=== PATIENT | female | born 1940 | race Caucasian/White ===

== ENCOUNTER 2017-08-27 10:07 | Outpatient (CLI) | payer MEDICARE ==
--- NOTE | 2017-08-27 14:23 | CT ---
CT CHEST WITH IV CONTRAST CT ABDOMEN AND PELVIS WITH IV AND ORAL CONTRAST: History: Chronic lymphocytic leukemia with chemotherapy and radiation. FINDINGS: No comparison. Lungs are somewhat hyperinflated with scattered calcified granulomata and interstitia l scarring. At the posterior aspect of the right upper lobe, just adjacent to the major pleural fiss ure is an oval well-circumscribed nodule that is 1.2 x 0.5 x 0.4 cm greatest diameters. Tiny nodules are present at the subpleural location of the superior segment left lower lobe. No lobar consolidat ion is apparent. Calcifications are present within the arterial structures. No enlarged mediastinal lymph nodes are evident. A 0.2 cm calculus is present within a nondilated stefanie of the superior pole of the right kidney. At the inferior pole of the right kidney is an oval 6.8 cm cyst. Smaller cysts are present within the r ight kidney and liver. No enlarged lymph nodes are scattered about the mesentery and retroperitoneum . Urinary bladder is unremarkable. The uterus and appendix are surgically absent. There are degenera tive changes of the lumbar spine. IMPRESSION: 1. Small parenchymal lung nodules, measuring up to 1.2 cm greatest diameter in the right upper lobe. Please consider short term CT follow up to evaluate for stability. 2. Atherosclerosis. 3. No evidence of adenopathy. POS: [facility]
[2017-08-27] MEDS ORDERED: Iopamidol 370 76% 100 ML VIAL ONE (16:38)
== END 2017-08-27 10:08 | disposition home or self-care (01) ==
LOC: CT 10:07
PROVIDERS: ATTEND Internal Medicine Hematology & Oncology
DX: C91.10 Chronic lymphocytic leukemia of B-cell type not having achieved remission (principal); R91.1 Solitary pulmonary nodule; I70.90 Unspecified atherosclerosis
CPT/HCPCS: 71260; 74177

== ENCOUNTER 2018-01-07 08:18 | Outpatient (CLI) | payer MEDICARE ==
--- NOTE | 2018-01-07 11:32 | CT ---
CHEST CT WITH CONTRAST: HISTORY: Chronic lymphocytic leukemia. COMPARISON: 08/27/17. TECHNIQUE: Chest CT is performed with contrast. Coronal reformatted images are submitted for interpretation. FINDINGS: There is a small amount of pericardial fluid. Heart size is normal. The thoracic aorta and upper ab dominal aorta have an overall normal caliber. No periaortic fat stranding. Adequate contrast opacif ication of the central pulmonary arteries, without filling defect. Intra- and extrahepatic portal vein is patent. There is focal fatty infiltration of the liver. Subc entimeter hypodensities in the liver are too small to characterize but are statistically favored to b e cysts. Right renal cyst is identified. No mediastinal mass, lymphadenopathy, or hematoma. Trachea and central bronchi are patent. Lingular atelectasis and scarring is noted. There is a calcified granuloma in the left lower lobe. Scarring and atelectasis in the left lower lobe and right lower lobe are identified. Minimal periphe ral tree-in-bud opacities in the superior segment of the right lower lobe and posterior right upper l obe are noted. The largest opacity is posterior to the major fissure and measures 1.1 cm in the maxi mum dimension (previously also measuring 1.1 cm in maximum dimension. There are no lytic or blastic lesions in the osseous structures. IMPRESSION: Stable parenchymal nodules in the right upper lobe. Stable what appear to be tree-in-bud opacities in the posterior right upper lobe and superior segment of the right lower lobe. Additiona l chronic changes in the lung parenchyma were identified. POS: [facility]
[2018-01-07] MEDS ORDERED: Iopamidol 370 76% 100 ML VIAL ONE (13:23)
== END 2018-01-07 08:19 | disposition home or self-care (01) ==
LOC: RAD-BREN 08:18
PROVIDERS: ATTEND Internal Medicine Hematology & Oncology
DX: C91.10 Chronic lymphocytic leukemia of B-cell type not having achieved remission (principal); R91.8 Other nonspecific abnormal finding of lung field
CPT/HCPCS: 71260

== ENCOUNTER 2020-05-09 10:45 | Outpatient (CLI) | payer MEDICARE ==
--- NOTE | 2020-05-09 12:53 | CT ---
CT OF THE CHEST WITH IV CONTRAST INDICATION: 79-year-old female with history of chronic lymphocytic leukemia of B-cell type COMPARISON: CT of the thorax with contrast dated January 07, [address] the chest, abdomen and pe lvis dated August 27, 2017 FINDINGS: CHEST: Lungs: The tree-in-bud nodularity involving the posterior segment of the right upper lobe as well as the superior segment of the right lower lobe are largely stable to the comparison. Small area of tree-in-bud nodularity involving the inferior lingula is stable appearing. Areas of subsegmental volu me loss involving the right middle lobe, lingula and both lower lobes are similar appearing. There is a stable calcified granuloma in the posterior medial aspect of the left lower lobe. Pleural space: No effusion. Mediastinum: There are mild vascular calcifications involving the coronary arteries and thoracic aort a. No pathologically enlarged lymph nodes are evident. Upper abdomen:There is stable right renal and hepatic cysts. No additional acute abnormality is evide nt. Osseous structures: No acute osseous abnormality. No destructive osteolytic or osteoblastic lesion i s identified. There is scattered degenerative and osteoarthritic changes. Soft tissues:Normal. IMPRESSION: 1. Tree-in-bud nodularity seen within the right upper lobe, right lower lobe and inferior lingula are stable to the comparison in 2018.
== END 2020-05-09 10:46 | disposition home or self-care (01) ==
LOC: SCSCT 10:45
PROVIDERS: ATTEND Internal Medicine Hematology & Oncology
DX: C91.10 Chronic lymphocytic leukemia of B-cell type not having achieved remission (principal); R91.8 Other nonspecific abnormal finding of lung field
CPT/HCPCS: 71260; 82565